=== PATIENT | female | born 1960 | race Two or more races ===

== ENCOUNTER 2018-03-26 11:40 | Emergency (ER) | payer MEDICAID ==
[~2018-03-26] VITALS: Ht 167.6 cm; Wt 70.3 kg
[~2018-03-26 11:40] MED LIST: LORA-259 PO; PANT40TA4 PO; TEMA30CA PO
--- NOTE | 2018-03-26 11:45 | NUR ---
PT BIB SELF. COMPLAINING OF FEELING "CHEST PAIN LIKE SYMPTOMS, MAYBE BECAUSE OF MY RECENT PROCEDURE". NO RADIATING PAIN. NO DIZZINESS NOTED. PT AOX4. AMBULATORY W.STEADY GAIT. WAITING FOR MD CRAWFORD.
[2018-03-26 11:54] VITALS: BP 114/69
[2018-03-26] MEDS ORDERED: ASPIRIN 81 MG TAB.CHEW ONE (12:11)
--- NOTE | 2018-03-26 12:14 | NUR ---
PT REFUSED IV LINE INSERTION.
[2018-03-26 12:24] LABS: BASOPHILS # (AUTO) 0.1 /CMM (0.0-0.2); EOSINOPHILS % (AUTO) 9.2 % (0.0-6.0); HEMATOCRIT 41 % (33-45); HEMOGLOBIN 13.8 g/dL (11.5-14.8); LYMPHOCYTES # (AUTO) 3.9 /CMM (0.8-4.8); LYMPHOCYTES % (AUTO) 45.6 % (20.0-44.0); MEAN CORPUSCULAR HGB CONC 33 g/dl (31.0-36.0); MEAN CORPUSCULAR VOLUME 92 fL (82-100); MONOCYTES # (AUTO) 0.7 /CMM (0.1-1.30); MONOCYTES % (AUTO) 7.8 % (2.0-12.0); NEUTROPHILS # (AUTO) 3.1 /CMM (1.8-8.9); NEUTROPHILS % (AUTO) 36.4 % (43.0-81.0); PLATELET COUNT (AUTO) 226 /CMM (150-450); RED BLOOD CELL COUNT(AUTO) 4.51 MIL/uL (4.0-5.2); WHITE BLOOD COUNT (AUTO) 8.5 K/uL (4.3-11.0)
[2018-03-26] MEDS ORDERED: ASPIRIN 81 MG TAB.CHEW PO ONE (12:30)
[2018-03-26 12:34] LABS: CALCIUM, SERUM 9.4 mg/dL (8.5-10.1); CARBON DIOXIDE 29 mmol/L (21-32); CHLORIDE 104 mmol/L (98-107); CREATININE 0.8 mg/dL (0.6-1.3); GLUCOSE 98 mg/dL (74-106); POTASSIUM 4.1 mmol/L (3.5-5.1); SODIUM SERUM 141 mmol/L (136-145); UREA NITROGEN, BLOOD 16 mg/dL (7-18)
--- NOTE | 2018-03-26 13:01 | NUR ---
PT REFUSING XRAY
== END 2018-03-26 13:14 | disposition left against medical advice (07) ==
LOC: ER 11:43
DX: R07.89 Other chest pain (principal); J43.9 Emphysema, unspecified; I10 Essential (primary) hypertension; R00.1 Bradycardia, unspecified; Z86.19 Personal history of other infectious and parasitic diseases; Z90.49 Acquired absence of other specified parts of digestive tract; Z88.4 Allergy status to anesthetic agent
CPT/HCPCS: 36415; 80048-TC; 84484-TC; 85025-TC; 85730-TC; A4606; Z7610

== ENCOUNTER 2022-06-15 09:33 | Emergency (ER) | payer MEDICAID ==
[~2022-06-15] VITALS: Ht 167.6 cm; Wt 59.9 kg
[~2022-06-15 09:33] MED LIST changes: -PANT40TA4 PO; +PANT40TA49 PO
--- NOTE | 2022-06-15 09:35 | NUR ---
RECEIVED pt 62 yrs female walking in from home c/o chest pain for 4 nalini (ahing pain )
--- NOTE | 2022-06-15 09:45 | NUR ---
BLOOD DROW by lab tach at bed side
--- NOTE | 2022-06-15 09:50 | NUR ---
Chest x ray done at bed side
--- NOTE | 2022-06-15 09:51 | NUR ---
DR. RODRIGUEZ AT BED SIDE SPOOK WITH PT
[2022-06-15] MEDS ORDERED: IBUP-1955 PO (10:16)
[2022-06-15 10:19] LABS: BASOPHILS # (AUTO) 0.1 K/uL (0.0-0.2); EOSINOPHILS % (AUTO) 10.5 % (0.0-6.0); HEMATOCRIT 39 % (33-45); HEMOGLOBIN 12.9 g/dL (11.5-14.8); LYMPHOCYTES # (AUTO) 3.1 K/uL (0.8-4.8); LYMPHOCYTES % (AUTO) 39.4 % (20.0-44.0); MEAN CORPUSCULAR HGB CONC 33 g/dl (31.0-36.0); MEAN CORPUSCULAR VOLUME 93 fL (82-100); MONOCYTES # (AUTO) 0.6 K/uL (0.1-1.30); NEUTROPHILS # (AUTO) 3.2 K/uL (1.8-8.9); NEUTROPHILS % (AUTO) 41.1 % (43.0-81.0); PLATELET COUNT (AUTO) 223 K/uL (150-450); WHITE BLOOD COUNT (AUTO) 7.8 K/uL (4.3-11.0)
--- NOTE | 2022-06-15 10:21 | NUR ---
RESTING And asleepy no chest pain
[2022-06-15 10:36] LABS: CALCIUM, SERUM 9.2 mg/dL (8.5-10.1); CARBON DIOXIDE 30 mmol/L (21-32); CHLORIDE 104 mmol/L (98-107); CREATININE 0.8 mg/dL (0.6-1.3); GLUCOSE 99 mg/dL (74-106); POTASSIUM 3.9 mmol/L (3.5-5.1); SODIUM SERUM 140 mmol/L (136-145); UREA NITROGEN, BLOOD 17 mg/dL (7-18)
--- NOTE | 2022-06-15 11:00 | NUR ---
UA SENT TO LAB
[2022-06-15 11:54] LABS: BILIRUBIN,URINE NEGATIVE (NEGATIVE); COLOR,URINE YELLOW (YELLOW); LEUKOCYTE ESTERASE ,URINE NEGATIVE (NEGATIVE); NITRITE, URINE NEGATIVE (NEGATIVE); PROTEIN,URINE NEGATIVE (NEGATIVE); UGLUCOSE NEGATIVE (NEGATIVE); UROBILINOGEN,URINE 0.2 EU/dL (0.2)
[2022-06-15 11:59] LABS: BACTERIA,URINE Rare /HPF (None Seen); RBC,URINE 0-2 /HPF (0-2); SQUAMOUS EPITHELIAL CELL,UR Few /HPF (None Seen); WBC,URINE 0-2 /HPF (0-3)
[2022-06-15 12:44] VITALS: BP 128/66
== END 2022-06-15 12:54 | disposition home or self-care (01) ==
LOC: ER 09:40
DX: R07.89 Other chest pain (principal); K21.9 Gastro-esophageal reflux disease without esophagitis; F41.9 Anxiety disorder, unspecified; Z90.49 Acquired absence of other specified parts of digestive tract; Z88.8 Allergy status to other drugs, medicaments and biological substances; Z79.899 Other long term (current) drug therapy
CPT/HCPCS: 36415; 71045-TC; 80048-TC; 81001; 84484-TC; 85025-TC

== ENCOUNTER 2022-06-25 11:04 | Emergency (ER) | payer MEDICAID ==
[~2022-06-25] VITALS: Ht 167.6 cm; Wt 59.9 kg
[~2022-06-25 11:04] MED LIST changes: +IBUP-1955 PO
--- NOTE | 2022-06-25 11:05 | NUR ---
RECEIVED PT 62 YRS FEMALE CAME FROM HOME C/O BACK X 5 DAY
--- NOTE | 2022-06-25 11:30 | NUR ---
SEEN BY PROVIDER
[2022-06-25] MEDS ORDERED: IBUPROFEN 600 MG TABLET PO ONE (12:00)
[2022-06-25] MEDS ORDERED: CYCLOBENZAPRINE 10 MG TABLET PO ONE (12:00)
[2022-06-25] MEDS ORDERED: CYCLOBENZAPRINE 10 MG TABLET ONE (12:06)
[2022-06-25] MEDS ORDERED: IBUPROFEN 600 MG TABLET ONE (12:06)
--- NOTE | 2022-06-25 12:23 | NUR ---
UA SENT TO LAB
--- NOTE | 2022-06-25 13:10 | NUR ---
X-RAY DONE AT BED SIDE
--- NOTE | 2022-06-25 13:20 | NUR ---
BEATER NO PAIN
--- NOTE | 2022-06-25 13:47 | NUR ---
Patient discharged to home in stable condition. Written and verbal after care instructions given. Patient verbalizes understanding of instruction.
[2022-06-25 13:56] VITALS: BP 139/53
== END 2022-06-25 13:57 | disposition home or self-care (01) ==
LOC: ER 11:10
DX: M54.50 Low back pain, unspecified (principal); Z90.49 Acquired absence of other specified parts of digestive tract; Z79.899 Other long term (current) drug therapy; Z88.8 Allergy status to other drugs, medicaments and biological substances
CPT/HCPCS: 72100-TC